=== PATIENT | female | born 1970 | race Caucasian/White ===

== ENCOUNTER 2021-05-12 08:22 | Emergency (ER) | payer SELFPAY ==
[~2021-05-12] VITALS: Ht 172.7 cm; Wt 78.0 kg
[2021-05-12] VITALS (8 sets, daily range): BP systolic 119–141; BP diastolic 64–90
[~2021-05-12 08:22] MED LIST: MEDDOSEPAK OR; SEPTRA DS1 TAB OR
[2021-05-12] MEDS ORDERED: DIPHENHYDRAM50 M2 PO (11:00)
[2021-05-12] MEDS ORDERED: PEPCID20 MG PO (11:00)
[2021-05-12] MEDS ORDERED: MEDDOSEPAK PO (11:00)
== END 2021-05-12 11:17 | disposition home or self-care (01) | DRG 916 ==
LOC: ED 08:22
DX: T78.40XA Allergy, unspecified, initial encounter (principal); J45.909 Unspecified asthma, uncomplicated; X58.XXXA Exposure to other specified factors, initial encounter

== ENCOUNTER 2021-07-17 14:59 | Emergency (ER) | payer SELFPAY ==
[~2021-07-17] VITALS: Ht 172.7 cm; Wt 80.0 kg
[~2021-07-17 14:59] MED LIST changes: +DIPHENHYDRAM50 M2 PO; +MEDDOSEPAK PO; +PEPCID20 MG PO
[2021-07-17] MEDS ORDERED: PROVENTIL0.083 % IN (15:11)
[2021-07-17] MEDS ORDERED: ZPAK PO (15:11)
[2021-07-17 15:43] VITALS: BP 120/83
== END 2021-07-17 15:40 | disposition home or self-care (01) | DRG 153 ==
LOC: ED 14:59
DX: J06.9 Acute upper respiratory infection, unspecified (principal); J45.909 Unspecified asthma, uncomplicated